=== PATIENT | female | born 1940 | race Caucasian/White ===

== ENCOUNTER → 2016-06-14 | Outpatient (CLI) | payer MEDICARE, BC ==
--- NOTE | 2016-06-16 08:48 | MM ---
Reason for exam: screening (asymptomatic). Last mammogram was performed 1 year and 1 month ago. History: Patient is postmenopausal. Benign stereotactic core biopsy of the right breast, September 11, 2004. Benign excisional biopsy of the right breast, April 04, 2000. Physical Findings: A clinical breast exam by your physician is recommended on an annual basis and results should be correlated with mammographic findings. MG 3D Screening Mammo W/Cad Bilateral CC and MLO view(s) were taken. Prior study comparison: May 02, 2015, bilateral MG screening mammo w CAD. April 09, 2014, bilateral MG screening mammo w CAD. There are scattered fibroglandular densities. Previous mammotome biopsy in the right breast. No significant changes when compared with prior studies. ASSESSMENT: Negative, BI-RAD 1 RECOMMENDATION: Routine screening mammogram of both breasts in 1 year.
== END | disposition home or self-care (01) ==
LOC: RADMAMWWP 15:00
PROVIDERS: ATTEND Family Medicine
DX: Z12.31 Encounter for screening mammogram for malignant neoplasm of breast (principal)
CPT/HCPCS: 77063; G0202

== ENCOUNTER → 2017-07-28 | Outpatient (CLI) | payer MEDICARE, BC ==
--- NOTE | 2017-07-29 12:07 | MM ---
Reason for exam: screening (asymptomatic). Last mammogram was performed 1 year and 1 month ago. History: Patient is postmenopausal. Benign stereotactic core biopsy of the right breast, September 11, 2004. Benign excisional biopsy of the right breast, April 04, 2000. Physical Findings: A clinical breast exam by your physician is recommended on an annual basis and results should be correlated with mammographic findings. MG 3D Screening Mammo W/Cad Bilateral CC and MLO view(s) were taken. Prior study comparison: June 14, 2016, bilateral MG 3d screening mammo w/cad. May 02, 2015, bilateral MG screening mammo w CAD. Previous mammotome biopsy in the right breast. No significant changes when compared with prior studies. ASSESSMENT: Benign, BI-RAD 2 RECOMMENDATION: Routine screening mammogram of both breasts in 1 year.
== END | disposition home or self-care (01) ==
LOC: RADMAMWWP 09:05
PROVIDERS: ATTEND Family Medicine
DX: Z12.31 Encounter for screening mammogram for malignant neoplasm of breast (principal)
CPT/HCPCS: 77063; 77067

== ENCOUNTER → 2018-08-23 | Outpatient (CLI) | payer MEDICARE, BC ==
--- NOTE | 2018-08-23 16:29 | BD ---
EXAMINATION TYPE: Axial Bone Density DATE OF EXAM: 08/23/2018 COMPARISON: NONE CLINICAL HISTORY: 78-year-old female asymptomatic menopausal Height: 5'4 Weight: 189 FRAX RISK QUESTIONS: Secondary Osteoporosis: RISK FACTORS HISTORY OF: Surgery to Spine/):L sp When: 1999 Postmenopausal woman: y MEDICATIONS: Additional Medications: blood pressure Additional History: EXAM MEASUREMENTS: Bone mineral densitometry was performed using the [employer] System. Bone mineral density about the R hip (g/cm2): 0.770 Bone mineral density about the L hip (g/cm2): 0.770 T Score values are as follows: -----R Neck: -1.9 -----L Neck: -1.9 -----R Total: -1.3 -----L Total: -1.0 Bone mineral density about the L Wrist (g/cm2): 0.672 T Score values are as follows: -----Dist. R+U: 0.5 -----Prox. R+U: 0.2 -----Radius total: 0.0 IMPRESSION: Osteopenia (T Score between -2.5 and -1). There is slightly increased risk of fracture and the patient may be considered for treatment. Re-Screen 2-5 years. NOTE: T-SCORE=SD OF THE YOUNG ADULT MEAN.
--- NOTE | 2018-08-25 13:36 | MM ---
Reason for exam: screening (asymptomatic). Last mammogram was performed 1 year and 1 month ago. History: Patient is postmenopausal. Benign stereotactic core biopsy of the right breast, September 11, 2004. Benign excisional biopsy of the right breast, April 04, 2000. Physical Findings: A clinical breast exam by your physician is recommended on an annual basis and results should be correlated with mammographic findings. MG 3D Screening Mammo W/Cad Bilateral CC and MLO view(s) were taken. Prior study comparison: July 28, 2017, bilateral MG 3d screening mammo w/cad. June 14, 2016, bilateral MG 3d screening mammo w/cad. The breast tissue is heterogeneously dense. This may lower the sensitivity of mammography. Finding #1: There is a 12 mm indistinct oval mass located 4 cm from the nipple in the outer quadrant, anterior middle position of the right breast. Finding #2: There are typically benign round, linear calcifications in both breasts. New finding since July 28, 2017 and June 14, 2016. ASSESSMENT: Incomplete: need additional imaging evaluation, BI-RAD 0 RECOMMENDATION: Ultrasound of the right breast. [facility] will attempt to contact patient to return for ultrasound.
== END ==
LOC: RADBDWWP 13:13
PROVIDERS: ATTEND Family Medicine
DX: Z12.31 Encounter for screening mammogram for malignant neoplasm of breast (principal); M85.80 Other specified disorders of bone density and structure, unspecified site; Z78.0 Asymptomatic menopausal state
CPT/HCPCS: 77063; 77067; 77080

== ENCOUNTER → 2018-09-07 | Outpatient (CLI) | payer MEDICARE, BC ==
--- NOTE | 2018-09-07 09:39 | USB ---
Reason for exam: additional evaluation requested from abnormal screening. History: Patient is postmenopausal. Benign stereotactic core biopsy of the right breast, September 11, 2004. Benign excisional biopsy of the right breast, April 04, 2000. Physical Findings: Nurse did not find any significant physical abnormalities on exam. US Breast Workup Limited RT Right limited breast ultrasound including focal area of concern, retroareolar and axilla demonstrates a 0.9 x 0.7 x 0.4cm cystic lesion at 8 o'clock, corresponds with mammographic finding. These results were verbally communicated with the patient and result sheet given to the patient on 09/07/18. ASSESSMENT: Benign, BI-RAD 2 RECOMMENDATION: Return to routine screening mammogram schedule for both breasts.
== END ==
LOC: RADUSWWP 08:44
PROVIDERS: ATTEND Family Medicine
DX: R92.8 Other abnormal and inconclusive findings on diagnostic imaging of breast (principal)

== ENCOUNTER → 2019-10-12 | Outpatient (CLI) | payer MEDICARE, BC ==
--- NOTE | 2019-10-12 11:20 | MM ---
Reason for exam: screening (asymptomatic). Last mammogram was performed 1 year and 2 months ago. History: Patient is postmenopausal. Benign stereotactic core biopsy of the right breast, September 11, 2004. Benign excisional biopsy of the right breast, April 04, 2000. Physical Findings: A clinical breast exam by your physician is recommended on an annual basis and results should be correlated with mammographic findings. MG 3D Screening Mammo W/Cad Bilateral CC and MLO view(s) were taken. Prior study comparison: August 23, 2018, bilateral MG 3d screening mammo w/cad. July 28, 2017, bilateral MG 3d screening mammo w/cad. The breast tissue is heterogeneously dense. This may lower the sensitivity of mammography. Stable benign calcifications. There is chronic nodularity bilaterally. There is no dominant lesion. There is no discrete abnormality. No significant changes when compared with prior studies. ASSESSMENT: Benign, BI-RAD 2 RECOMMENDATION: Routine screening mammogram of both breasts in 1 year.
== END | disposition home or self-care (01) ==
LOC: RADMAMWWP 07:25
PROVIDERS: ATTEND Family Medicine
DX: Z12.31 Encounter for screening mammogram for malignant neoplasm of breast (principal)
CPT/HCPCS: 77063; 77067

== ENCOUNTER → 2020-12-19 | Outpatient (CLI) | payer MEDICARE, BC ==
--- NOTE | 2020-12-24 08:30 | MM ---
Reason for exam: screening (asymptomatic). Last mammogram was performed 1 year and 2 months ago. History: Patient is postmenopausal. Benign stereotactic core biopsy of the right breast, September 11, 2004. Benign excisional biopsy of the right breast, April 04, 2000. Took hormonal contraceptives for 8 years. Physical Findings: A clinical breast exam by your physician is recommended on an annual basis and results should be correlated with mammographic findings. MG 3D Screening Mammo W/Cad Bilateral CC and MLO view(s) were taken. Prior study comparison: October 12, 2019, bilateral MG 3d screening mammo w/cad. August 23, 2018, bilateral MG 3d screening mammo w/cad. The breast tissue is heterogeneously dense. This may lower the sensitivity of mammography. Previous mammotome biopsy in the right breast. No significant changes when compared with prior studies. ASSESSMENT: Benign, BI-RAD 2 RECOMMENDATION: Routine screening mammogram of both breasts in 1 year.
== END | disposition home or self-care (01) ==
LOC: RADMAMWWP 13:02
PROVIDERS: ATTEND Family Medicine
DX: Z12.31 Encounter for screening mammogram for malignant neoplasm of breast (principal); Z78.0 Asymptomatic menopausal state; Z79.3 Long term (current) use of hormonal contraceptives
CPT/HCPCS: 77063; 77067

== ENCOUNTER → 2021-03-27 | Outpatient (CLI) | payer MEDICARE, BC ==
--- NOTE | 2021-03-27 08:59 | BD ---
EXAMINATION TYPE: Axial Bone Density DATE OF EXAM: 03/27/2021 COMPARISON: 08/23/2018 CLINICAL HISTORY: Height: 63.7 IN Weight: 176 LBS RISK FACTORS HISTORY OF: Surgery to Spine: L SPINE SURGERY IN 1999 Active: YES Diet low in dairy products/other sources of calcium: YES Postmenopausal woman: AGE 52 MEDICATIONS: Additional Medications: CALCIUM, BLOOD PRESSURE MEDS, BABY ASPIRIN, FISH OIL EXAM MEASUREMENTS: Bone mineral densitometry was performed using the [employer] System. PT HAD L-SPINE SURGERY IN 1999. Bone mineral density about the R hip (g/cm2): 0.751 Bone mineral density about the L hip (g/cm2): 0.754 T Score values are as follows: -----R Neck: -2.1 -----L Neck: -2.0 -----R Total: -1.1 -----L Total: -0.8 Bone mineral density has: Increased 3.0% since study of: 08/23/2018 Bone mineral density about the L Wrist (g/cm2): 0.679 T Score values are as follows: -----Dist. R+U: -1.5 -----Prox. R+U: 0.4 -----Radius total: 0.1 Bone mineral density has: Increased 2.1% since study of: 08/23/2018 IMPRESSION: Osteopenia (T Score between -2.5 and -1). There is slightly increased risk of fracture and the patient may be considered for treatment. Re-Screen 2-5 years. NOTE: T-SCORE=SD OF THE YOUNG ADULT MEAN.
== END | disposition home or self-care (01) ==
LOC: RADBDWWP 07:00
PROVIDERS: ATTEND Family Medicine
DX: M85.89 Other specified disorders of bone density and structure, multiple sites (principal); Z78.0 Asymptomatic menopausal state
CPT/HCPCS: 77080

== ENCOUNTER → 2022-02-10 | Outpatient (CLI) | payer MEDICARE ==
--- NOTE | 2022-02-11 18:41 | MM ---
Reason for Exam: Screening (asymptomatic). Last mammogram was performed 1 year(s) and 1 month(s) ago. Patient History: Menarche at age 15. First Full-Term at age 28. Postmenopausal. Patient used Hormonal Contraceptives for 8 years. 04/04/2000, Benign Excisional Biopsy on the right side. 09/11/2004, Benign Stereotactic Core Biopsy on the right side. Risk Values: Jenae 5 year model risk: 2.8%. NCI Lifetime model risk: 4.7%. Prior Study Comparison: 08/23/2018 Bilateral Screening Mammogram, [facility]. 10/12/2019 Bilateral Screening Mammogram, [facility]. 12/19/2020 Bilateral Screening Mammogram, [facility]. Tissue Density: There are scattered fibroglandular densities. Findings: Analyzed By CAD. Redemonstrated areas of chronic nodularity anterior and lateral right breast. Benign bilateral secretory and some round calcifications. Microclip right breast from prior biopsy. No significant change from prior exams. Overall Assessment: Benign, BI-RAD 2 Management: Screening Mammogram of both breasts in 1 year. 1. Patient should continue monthly self breast exams. 2. A clinical breast exam by your physician is recommended on an annual basis. 3. This exam should not preclude additional follow-up of suspicious palpable abnormalities. Electronically signed and approved by: Mary Anne Cordoba M.D. Radiologist
== END | disposition home or self-care (01) ==
LOC: RADMAMWWP 07:52
PROVIDERS: ATTEND Family Medicine
DX: Z12.31 Encounter for screening mammogram for malignant neoplasm of breast (principal); Z78.0 Asymptomatic menopausal state
CPT/HCPCS: 77063; 77067

== ENCOUNTER 2024-01-22 09:30 | Inpatient (IN) | payer MEDICARE ==
--- NOTE | 2024-01-22 09:58 | ED ---
General Adult HPI - General Chief complaint: Fall Stated complaint: L Hip Pain Time Seen by Provider: 01/22/24 09:34 Source: patient, EMS, RN notes reviewed, old records reviewed Mode of arrival: EMS - History of Present Illness Initial comments: 83-year-old female presenting for evaluation of left hip pain status post fall. Patient was unable to ambulate after the fall. She states she tripped falling backwards landing on her left hip. Patient was transported by paramedics, given fentanyl for pain management. She denies head or neck trauma. She denies preceding symptoms of dizziness or lightheadedness. Denies chest pain. Denies anticoagulation. - Related Data Home Medications Medication Instructions Recorded Confirmed Calcium Carbonate/Vitamin D3 1 tab PO BID 05/17/14 05/26/15 [Calcium 600-Vit D3 400 Tablet] Enalapril Maleate 10 mg PO BID 05/17/14 05/26/15 Multivitamins, Thera [Multivitamin 1 tab PO DAILY 05/17/14 05/26/15 (formulary)] Mittie-3 Fatty Acids/Fish Oil [Fish 1,000 mg PO BID 05/17/14 05/26/15 Oil 1,000 mg Softgel] Aspirin 81 mg PO DAILY 05/19/15 05/26/15 Warfarin [Coumadin] 7.5 mg PO ONCE 05/26/15 05/26/15 Previous Rx's Medication Instructions Recorded Docusate [Colace] 100 mg PO BID #60 capsule 05/27/15 HYDROcodone/APAP 5-325MG [[place] 1 - 2 each PO Q6HR PRN #90 tab 05/27/15 5-325] Warfarin [Coumadin] 2.5 mg PO DAILY #1 tab 05/27/15 Allergies Allergy/AdvReac Type Severity Reaction Status Date / Time No Known Allergies Allergy Verified 01/22/24 09:42 Review of Systems ROS Statement: Those systems with pertinent positive or pertinent negative responses have been documented in the HPI. ROS Other: All systems not noted in ROS Statement are negative. Past Medical History Past Medical History: Hyperlipidemia, Hypertension, Osteoarthritis (OA) Additional Past Medical History / Comment(s): 05/26/15 Pt admitted to floor s/p total R knee arthroplasty. Other HX: DJD History of Any Multi-Drug Resistant Organisms: None Reported Past Surgical History: Back Surgery, Breast Surgery, Tonsillectomy Additional Past Surgical History / Comment(s): 05/26/15 Total R knee arthroplasty. Other surgeries: two breast biopsies,LT KNEE REPLACEMENT Past Anesthesia/Blood Transfusion Reactions: No Reported Reaction Past Psychological History: No Psychological Hx Reported Smoking Status: Never smoker Past Alcohol Use History: None Reported Past Drug Use History: None Reported - Past Family History Father Family Medical History: Hypertension Brother(s) Additional Family Medical History / Comment(s): CABG Mother Family Medical History: Diabetes Mellitus, Hypertension General Exam General appearance: alert, in no apparent distress Head exam: Present: atraumatic, normocephalic Eye exam: Present: normal appearance, PERRL ENT exam: Present: normal exam Neck exam: Present: normal inspection. Absent: tenderness, meningismus Respiratory exam: Present: normal lung sounds bilaterally. Absent: respiratory distress, wheezes Cardiovascular Exam: Present: regular rate, normal rhythm GI/Abdominal exam: Present: soft. Absent: distended, tenderness, guarding Extremities exam: Present: tenderness, normal capillary refill, other (Left lower extremity is shortened and externally rotated, distal pulses intact). Absent: full ROM Neurological exam: Present: alert, oriented X3 Psychiatric exam: Present: normal affect, normal mood Skin exam: Present: warm, dry, intact Course Vital Signs 01/22/24 09:32 Temperature 98.0 F Pulse Rate 91 Respiratory 16 Rate Blood Pressure 183/68 O2 Sat by Pulse 95 Oximetry Medical Decision Making - Medical Decision Making Was pt. sent in by a medical professional or institution (, PA, LEATHER TOOLER, urgent care, hospital, or detention...) When possible be specific @ -No Did you speak to anyone other than the patient for history (EMS, parent, family, police, friend...)? What history was obtained from this source @ -No Did you review nursing and triage notes (agree or disagree)? Why? @ -I reviewed and agree with nursing and triage notes Were old charts reviewed (outside hosp., previous admission, EMS record, old EKG, old radiological studies, urgent care reports/EKG's, detention records)? Report findings @ -No old charts were reviewed Differential Diagnosis (chest pain, altered mental status, abdominal pain women, abdominal pain men, vaginal bleeding, weakness, fever, dyspnea, syncope, headache, dizziness, GI bleed, back pain, seizure, CVA, palpatations, mental health, musculoskeletal)? @ -Not applicable EKG interpreted by me (3pts min.). @Sinus rhythm right bundle branch block, rate of 91, OR interval 160, QRS duration 138, QTc [address] segment elevation. X-rays interpreted by me (1pt min.). @ -X-ray left hip shows a left femoral neck fracture, chest x-ray is clear no acute findings CT interpreted by me (1pt min.). @ -None done U/S interpreted by me (1pt. min.). @ -None done What testing was considered but not performed or refused? (CT, X-rays, U/S, labs)? Why? @ -None What meds were considered but not given or refused? Why? @ -None Did you discuss the management of the patient with other professionals (professionals i.e. , PA, LEATHER TOOLER, lab, RT, psych nurse, social security specialist, trackless trolley driver, teacher, founder and chief technical officer, insurance case manager)? Give summary @ -[Dr. Mojica has been paged covering for orthopedics, internal medicine placed on consult for medical management Was smoking cessation discussed for >3mins.? @ -No Was critical care preformed (if so, how long)? @ -No Were there social determinants of health that impacted care today? How? (Homelessness, low income, unemployed, alcoholism, drug addiction, transportation, low edu. Level, literacy, decrease access to med. care, [facility], rehab)? @ -No Was there de-escalation of care discussed even if they declined (Discuss DNR or withdrawal of care, Hospice)? DNR status @ -No What co-morbidities impacted this encounter? (DM, HTN, Smoking, COPD, CAD, Cancer, CVA, ARF, Chemo, Hep., AIDS, mental health diagnosis, sleep apnea, morbid obesity)? @ -None Was patient admitted / discharged? Hospital course, mention meds given and route, prescriptions, significant lab abnormalities, going to OR and other pertinent info. @ -83-year-old female with mechanical fall, left hip pain. The left lower extremity is shortened and externally rotated. Distal pulses are intact. X-ray confirms left femoral neck fracture. Patient admitted to orthopedics with medicine on consult. Undiagnosed new problem with uncertain prognosis? @ -No Drug Therapy requiring intensive monitoring for toxicity (Heparin, Nitro, Insulin, Cardizem)? @ -No Were any procedures done? @ -No Diagnosis/symptom? @ -Left femoral neck fracture Acute, or Chronic, or Acute on Chronic? @Acute Uncomplicated (without systemic symptoms) or Complicated (systemic symptoms)? @ -Default Side effects of treatment? @ -No Exacerbation, Progression, or Severe Exacerbation? @ -No Poses a threat to life or bodily function? How? (Chest pain, [place], [place], pneumonia, PE, COPD, DKA, ARF, appy, cholecystitis, CVA, Diverticulitis, Homicidal, Suicidal, threat to staff... and all critical care pts) @ -[Yes, hip fracture - Lab Data Result diagrams: 01/22/24 09:52 01/22/24 09:52 Lab Results 01/22/24 01/22/24 01/22/24 Range/Units 09:52 09:52 09:52 WBC 11.1 H (3.8-10.6) k/uL RBC 4.65 (3.80-5.40) m/uL Hgb 14.7 (11.4-16.0) gm/dL Hct 44.1 (34.0-46.0) % MCV 94.9 (80.0-100.0) fL MCH 31.6 (25.0-35.0) pg MCHC 33.4 (31.0-37.0) g/dL RDW 13.1 (11.5-15.5) % Plt Count 196 (150-450) k/uL MPV 7.5 Neutrophils % 88 % Lymphocytes % 7 % Monocytes % 4 % Eosinophils % 1 % Basophils % 0 % Neutrophils # 9.8 H (1.3-7.7) k/uL Lymphocytes # 0.8 L (1.0-4.8) k/uL Monocytes # 0.4 (0-1.0) k/uL Eosinophils # 0.1 (0-0.7) k/uL Basophils # 0.0 (0-0.2) k/uL PT 10.9 (10.0-12.5) sec INR 1.0 (<1.2) APTT 21.9 L (22.0-30.0) sec Sodium 138 (137-145) mmol/L Potassium 4.1 (3.5-5.1) mmol/L Chloride 107 (98-107) mmol/L Carbon Dioxide 28 (22-30) mmol/L Anion Gap 3 mmol/L BUN 14 (7-17) mg/dL Creatinine 0.92 (0.52-1.04) mg/dL Est GFR (CKD-EPI)AfAm 68 (>60 ml/min/1.73 sqM) Est GFR (CKD-EPI)NonAf 59 (>60 ml/min/1.73 sqM) Glucose 173 H (74-99) mg/dL Calcium 9.8 (8.4-10.2) mg/dL Total Bilirubin 0.7 (0.2-1.3) mg/dL AST 35 (14-36) U/L ALT 24 (4-34) U/L Alkaline Phosphatase 68 (38-126) U/L Total Protein 6.6 (6.3-8.2) g/dL Albumin 4.0 (3.5-5.0) g/dL Disposition Clinical Impression: Fall, Fracture of femoral neck, left Disposition: ADMITTED IP TO THIS HOSP Condition: Stable Is patient prescribed a controlled substance at d/c from ED?: No Referrals: Sohail Gomez MD [Primary Care Provider] - 1-2 days Time of Disposition: 11:20
[2024-01-22 10:02] LABS: Basophils % (A) 0 %; Eosinophils # (A) 0.1 k/uL (0-0.7); Eosinophils % (A) 1 %; HCT 44.1 % (34.0-46.0); HGB 14.7 gm/dL (11.4-16.0); Lymphocytes # (A) 0.8 k/uL (1.0-4.8); Lymphocytes % (A) 7 %; MCH 31.6 pg (25.0-35.0); MCHC 33.4 g/dL (31.0-37.0); MCV 94.9 fL (80.0-100.0); Mean Platelet Volume 7.5; Monocytes # (A) 0.4 k/uL (0-1.0); Monocytes % (A) 4 %; Neutrophils # (A) 9.8 k/uL (1.3-7.7); Neutrophils % (A) 88 %; Platelet Count 196 k/uL (150-450); RBC 4.65 m/uL (3.80-5.40); RDW 13.1 % (11.5-15.5); WBC 11.1 k/uL (3.8-10.6)
[2024-01-22 10:19] LABS: ALT 24 U/L (4-34); AST 35 U/L (14-36); African American GFR (CKD) 68 (>60 ml/min/1.73 sqM); Alkaline Phosphatase 68 U/L (38-126); Anion Gap 3 mmol/L; Blood Urea Nitrogen 14 mg/dL (7-17); Calcium 9.8 mg/dL (8.4-10.2); Carbon Dioxide 28 mmol/L (22-30); Chloride 107 mmol/L (98-107); Glucose 173 mg/dL (74-99); Non-African American GFR(CKD) 59 (>60 ml/min/1.73 sqM); Partial Thromboplastin Time 21.9 sec (22.0-30.0); Potassium 4.1 mmol/L (3.5-5.1); Prothrombin Time 10.9 sec (10.0-12.5); Sodium 138 mmol/L (137-145); Total Bilirubin 0.7 mg/dL (0.2-1.3); Total Protein 6.6 g/dL (6.3-8.2)
[2024-01-22] MEDS ORDERED: NALOXONE 0.4 MG/ML 1 ML VIAL IV PRN (11:17)
--- NOTE | 2024-01-22 11:17 | XR ---
EXAMINATION TYPE: XR Hip Complete LT DATE OF EXAM: 01/22/2024 COMPARISON: None HISTORY: Fall, pain TECHNIQUE: 2 view left hip FINDINGS: Femoral neck fracture is evident. Femoral head articulates with the acetabulum. No addition al fractures are evident. IMPRESSION: 1. Left femoral neck fracture [facility]-Ray Annetta Morgan, Workstation: [facility], 01/22/2024 11:14 AM
--- NOTE | 2024-01-22 11:17 | XR ---
EXAMINATION TYPE: XR chest 1V portable DATE OF EXAM: 01/22/2024 COMPARISON: None INDICATION: Presurgical clearance, fall, pain TECHNIQUE: Single frontal view of the chest is obtained. FINDINGS: The heart size is normal. The pulmonary vasculature is normal. The lungs are clear. No pneumothorax is evident. No displaced rib fractures evident. IMPRESSION: 1. No acute pulmonary process. [facility], Workstation: [facility], 01/22/2024 11:15 AM
[2024-01-22] MEDS: SODIUM CHLORIDE 0.9% 1,000 ML IV SCH (11:35)
[2024-01-22] MEDS: MORPHINE SULFATE 2 MG/ML SYRINGE IVP STA (11:37)
--- NOTE | 2024-01-22 14:26 | P.HPOR ---
History of Present Illness H&P Date: 01/22/24 This is an 83-year-old female who is admitted for a left hip fracture. Patient states that she fell at home earlier this morning and developed pain in the left hip. Patient was transferred to the emergency room via EMS and x-rays revealed a left femoral neck fracture. Patient denies any head injury or loss of consciousness. Patient's past medical history is significant for hypertension and osteoarthritis. Patient denies any fever/chills, chest pain, shortness breath, abdominal pain, numbness, weakness or tingling. Review of Systems See HPI. Past Medical History Past Medical History: Hypertension, Osteoarthritis (OA) Additional Past Medical History / Comment(s): DJD, Left femer fracture secondary to fall (01/22/24) History of Any Multi-Drug Resistant Organisms: None Reported Past Surgical History: Back Surgery, Breast Surgery, Tonsillectomy Additional Past Surgical History / Comment(s): two breast biopsies,LT KNEE REPLACEMENT, Rt knee replacement Past Anesthesia/Blood Transfusion Reactions: No Reported Reaction Past Psychological History: No Psychological Hx Reported Additional Psychological History / Comment(s): Pt resides with her spouse. She uses no assistive device. She drives. Smoking Status: Never smoker Past Alcohol Use History: None Reported Past Drug Use History: None Reported - Past Family History Father Family Medical History: Hypertension Brother(s) Additional Family Medical History / Comment(s): CABG Mother Family Medical History: Diabetes Mellitus, Hypertension Medications and Allergies Home Medications Medication Instructions Recorded Confirmed Type Aspirin EC [Ecotrin Low Dose] 81 mg PO DAILY 01/22/24 01/22/24 History Calcium Carbonate/Vitamin D3 1 tab PO DAILY 01/22/24 01/22/24 History [Calcium 500-Vit D3 400 Chew Tb] Cholecalciferol [Vitamin D3 (25 25 mcg PO DAILY 01/22/24 01/22/24 History Mcg = 1000 Iu)] Enalapril [Vasotec] 20 mg PO BID 01/22/24 01/22/24 History [place]-3/Dha/Epa/Fish Oil [[place]-3 1 cap PO DAILY 01/22/24 01/22/24 History Fish Oil 1,000 mg Sfgl] Allergies Allergy/AdvReac Type Severity Reaction Status Date / Time No Known Allergies Allergy Verified 01/22/24 12:43 Physical Examination On exam patient is resting comfortably in bed in no acute distress. Patient is alert and oriented 3. Left lower extremity: Shortened and externally rotated. Skin is intact. There is mild swelling present. Patient has good range of motion of the left foot and ankle. Calf is soft and nontender to palpation. Sensation intact. Neurovascular status and circulatory status are intact. Head is normocephalic and atraumatic. Exams of bilateral upper extremities and the right lower extremity are within normal limits. Results An x-ray report of the left hip dated 01/22/2024 shows a left femoral neck frac ture. - Labs Labs: Abnormal Lab Results - Last 24 Hours (Table) 01/22/24 01/22/24 01/22/24 Range/Units 09:52 09:52 09:52 WBC 11.1 H (3.8-10.6) k/uL Neutrophils # 9.8 H (1.3-7.7) k/uL Lymphocytes # 0.8 L (1.0-4.8) k/uL APTT 21.9 L (22.0-30.0) sec Glucose 173 H (74-99) mg/dL H & H 01/22/24 Range/Units 09:52 Hgb 14.7 (11.4-16.0) gm/dL Hct 44.1 (34.0-46.0) % Coagulation 01/22/24 Range/Units 09:52 INR 1.0 (<1.2) Result Diagrams: 01/22/24 09:52 01/22/24 09:52 Assessment and Plan (1) Fall Current Visit: Yes Status: Acute Code(s): W19.XXXA - UNSPECIFIED FALL, INITIAL ENCOUNTER SNOMED Code(s): 5331066 (2) Fracture of femoral neck, left Current Visit: Yes Status: Acute Code(s): S72.002A - FRACTURE OF UNSP PART OF NECK OF LEFT FEMUR, INIT SNOMED Code(s): 2635253 Plan: 1. NPO 2. Continue bedrest and pain control. 3. Appreciate input from internal medicine. 4. Planning for left hip hemiarthroplasty later today pending medical clearance and patient consent.
--- NOTE | 2024-01-22 16:21 | P.CONS ---
History of Present Illness - Reason for Consult Consult date: 01/22/24 pre-op evaluation Requesting physician: Rickie Jama - Chief Complaint hip pain - History of Present Illness Patient is an 83-year-old admitted for left femoral neck fracture. Admitted to orthopedic surgery and we are asked to consult for medical management and preoperative clearance Patient seen and examined at bedside. She reports that she fell today without loss of consciousness. No presyncope symptoms. Mechanical fall. Landed on her left hip and was unable to get up afterwards. Denies any recent chest pain, shortness of breath, syncope, lightheadedness, dizziness. No history of any heart disease. 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 Patient denies any symptoms of lightheadedness, dizziness, chest pain, shortness of breath, or palpitations in the last 6 months. She has no knowledge of a bundle branch block. Vital signs reviewed General: nontoxic, no distress, appears at stated age Derm: warm, dry Eyes: EOMI, no lid lag, anicteric sclera, pupils equal round reactive to light ENT: Nose and ears atraumatic Cardiovascular: S1S2 reg, no murmur, no edema Lungs: clear to auscultation bilateral, no rhonchi, no rales, no wheeze, no accessory muscle use Abdominal: soft, nontender to palpation, no guarding Ext: Left leg externally rotated and shortened Neuro: CN II-XII grossly intact, living arms independently Psych: Alert, oriented, appropriate affect Assessment/Plan: Left femoral neck fracture Preoperative clearance; NSQIP score for hemiarthroplasty: Risk of serious complications 4.7% ( average 3.6%), Any complications (5.2% (average 4.3%), cardiac complications 0.3% (avrage 0.3%) Patient medically optimized for surgery. Patient with newly identified RBB and LAF block. No need to delay surgery at this time. Pre and Post op tele monitoring recommended. Obtain echo which can be completed post-op. Obtain EKG from Dr. Gomez. Hypertension, controlled -Resume Vasotec 20 mg twice daily Imaging: EKG is reviewed by myself reveals normal sinus rhythm at 91 bpm with right bundle branch block and left anterior fascicular block Data Review: WBC 11.1, remainder of CBC and CMP are within normal. Thank you for allowing us to participate in the care of this pleasant patient. Do not hesitate to contact us with questions. Someone can be reached from the [facility] hospitalist group all hours of the day at [phone] or via [employer]. This dictation was prepared using [employer] voice recognition software. Though every attempt is made to correct errors during dictation some may still exist. Past Medical History Past Medical History: Hypertension, Osteoarthritis (OA) Additional Past Medical History / Comment(s): DJD, Left femer fracture secondary to fall (01/22/24) History of Any Multi-Drug Resistant Organisms: None Reported Past Surgical History: Back Surgery, Breast Surgery, Tonsillectomy Additional Past Surgical History / Comment(s): two breast biopsies,LT KNEE REPLACEMENT, Rt knee replacement Past Anesthesia/Blood Transfusion Reactions: No Reported Reaction Past Psychological History: No Psychological Hx Reported Additional Psychological History / Comment(s): Pt resides with her spouse. She uses no assistive device. She drives. Smoking Status: Never smoker Past Alcohol Use History: None Reported Past Drug Use History: None Reported - Past Family History Father Family Medical History: Hypertension Brother(s) Additional Family Medical History / Comment(s): CABG Mother Family Medical History: Diabetes Mellitus, Hypertension Medications and Allergies Home Medications Medication Instructions Recorded Confirmed Type Aspirin EC [Ecotrin Low Dose] 81 mg PO DAILY 01/22/24 01/22/24 History Calcium Carbonate/Vitamin D3 1 tab PO DAILY 01/22/24 01/22/24 History [Calcium 500-Vit D3 400 Chew Tb] Cholecalciferol [Vitamin D3 (25 25 mcg PO DAILY 01/22/24 01/22/24 History Mcg = 1000 Iu)] Enalapril [Vasotec] 20 mg PO BID 01/22/24 01/22/24 History [place]-3/Dha/Epa/Fish Oil [[place]-3 1 cap PO DAILY 01/22/24 01/22/24 History Fish Oil 1,000 mg Sfgl] Allergies Allergy/AdvReac Type Severity Reaction Status Date / Time No Known Allergies Allergy Verified 01/22/24 12:43 Physical Exam Osteopathic Statement: *. No significant issues noted on an osteopathic structural exam other than those noted in the History and Physical/Consult. Vitals: Vital Signs Temp Pulse Pulse Resp BP BP Pulse Ox 01/22/24 14:00 98.0 F 74 16 151/71 90 L 01/22/24 13:40 98.5 F 86 18 137/76 95 01/22/24 11:34 82 18 140/77 94 L 01/22/24 09:32 98.0 F 91 16 183/68 95 Intake and Output 01/22/24 01/22/24 01/22/24 06:59 14:59 22:59 Other: Weight 75.75 kg Results CBC & Chem 7: 01/22/24 09:52 01/22/24 09:52 Labs: Abnormal Lab Results - Last 24 Hours (Table) 01/22/24 01/22/24 01/22/24 Range/Units 09:52 09:52 09:52 WBC 11.1 H (3.8-10.6) k/uL Neutrophils # 9.8 H (1.3-7.7) k/uL Lymphocytes # 0.8 L (1.0-4.8) k/uL APTT 21.9 L (22.0-30.0) sec Glucose 173 H (74-99) mg/dL
[2024-01-22] MEDS: HYDROmorphone 0.5 MG/0.5 ML SYRINGE IVP PRN (18:03)
[2024-01-22] MEDS: lisinopriL 20 MG TAB PO SCH (20:51)
[2024-01-23 04:10] LABS: Basophils % (A) 0 %; Eosinophils # (A) 0.1 k/uL (0-0.7); Eosinophils % (A) 1 %; HCT 40.9 % (34.0-46.0); HGB 13.3 gm/dL (11.4-16.0); Lymphocytes # (A) 0.8 k/uL (1.0-4.8); Lymphocytes % (A) 8 %; MCH 31.9 pg (25.0-35.0); MCHC 32.6 g/dL (31.0-37.0); MCV 97.8 fL (80.0-100.0); Monocytes # (A) 0.5 k/uL (0-1.0); Monocytes % (A) 5 %; Neutrophils # (A) 8.1 k/uL (1.3-7.7); Neutrophils % (A) 86 %; Platelet Count 161 k/uL (150-450); RBC 4.18 m/uL (3.80-5.40); RDW 12.8 % (11.5-15.5); WBC 9.4 k/uL (3.8-10.6)
[2024-01-23] MEDS: IV FLUID CONTINUATION 1,000 ML IV ONE (07:51)
[2024-01-23] MEDS: LACTATED RINGERS 1,000 ML BAG IV STA (07:52)
[2024-01-23] MEDS: DEXAMETHASONE SOD PHOSPHATE 4 MG/ML 1 ML VIAL IVP STA (08:06)
[2024-01-23] MEDS: ONDANSETRON 4 MG/2 ML VIAL IVP STA (08:07)
[2024-01-23] MEDS: MIDAZOLAM 2 MG/2 ML VIAL IV ONE (08:11)
[2024-01-23] MEDS ORDERED: ONDANSETRON 4 MG/2 ML VIAL IVP PRN (08:44)
[2024-01-23] MEDS ORDERED: MAGNESIUM HYDROXIDE 2,400 MG/30 ML CUP PO PRN (08:44)
[2024-01-23] MEDS ORDERED: NALOXONE 0.4 MG/ML 1 ML VIAL IV PRN (08:44)
[2024-01-23] MEDS ORDERED: HYDROmorphone 0.5 MG/0.5 ML SYRINGE IVP PRN ×3 (08:44)
[2024-01-23] MEDS ORDERED: NON FORMULARY DRUG (Omega-3/Dha/Epa/Fish Oil [Omega-3 Fish Oil 1,000 Mg Sfgl] 1 EACH Capsu PO SCH (09:00)
[2024-01-23] MEDS ORDERED: MIDAZOLAM 2 MG/2 ML VIAL ONE (09:11)
[2024-01-23] MEDS ORDERED: fentaNYL (PF) 50 MCG/ML 2 ML AMP ONE (09:11)
[2024-01-23] MEDS: SODIUM CHLORIDE 0.9% 100 ML with ceFAZolin 2,000 MG IV ONE (09:11)
[2024-01-23] MEDS ORDERED: PROPOFOL 10 MG/ML 20 ML VIAL IV ONE (09:11)
[2024-01-23] MEDS ORDERED: TRANEXAMIC 1,000 MG/100ML-NACL PREMIX BAG ONE (09:11)
[2024-01-23] MEDS: ceFAZolin 1,000 MG in SODIUM CHLORIDE 0.9% 1,000 ML IRRIGATION ONE (09:11)
[2024-01-23] MEDS ORDERED: KETAMINE HCL IN 0.9 % NACL 50 MG/5 ML SYRINGE ONE (09:11)
[2024-01-23] MEDS: ROPIVACAINE 5 MG/ML 30 ML VIAL MISCELLANE ONE ×2 (09:37→10:05)
--- NOTE | 2024-01-23 10:08 | P.OP ---
Date of Procedure: 01/23/24 Preoperative Diagnosis: Subcapital fracture left hip Postoperative Diagnosis: Subcapital fracture left hip Procedure(s) Performed: Left hip hemiarthroplasty Implants: Grewal and nephew Polarstem size 3 standard with a collar Grewal [employer] Nephew tandem unipolar, 45 mm Grewal & Nephew tandem unipolar 12/14 taper sleeve, +0 mm All components were press-fit. Anesthesia: spinal Surgeon: Rickie Jama [employer] Clerk #1: Raissa Barcenas Estimated Blood Loss (ml): 100 Pathology: none sent Condition: stable Disposition: PACU Indications for Procedure: This is an 83-year-old female that sustained a ground-level fall at home. X- rays demonstrate a subcapital fracture of her left hip. After discussing the surgical and nonsurgical treatment options with her and her family at length, I recommended a left hip hemiarthroplasty. Informed consent was obtained. Operative Findings: The operative findings are consistent with a subcapital fracture of the left hip Description of Procedure: The patient was seen and evaluated in the preoperative area and the consent was reviewed. The operative site was marked with a skin marker. The patient verified the procedure and operative site. The patient was then brought to the operating room and given preoperative antibiotics intravenously. 1 g of Tranexamic acid was also given intravenously. A spinal anesthetic was administered by the anesthesia department. The patient was then placed on the [place] table with the bony prominences well-padded. The hip area was then prepped with a ChloraPrep solution and draped in the usual sterile fashion. A universal timeout was then performed, which confirmed the patient's name, surgical site, ALLERGIES, and procedure being performed on the consent. Next the incision site was located at 1 cm distal and 4 cm lateral to the anterior superior iliac spine. The skin and subcutaneous tissues were sharply incised. Incision was carefully dissected down to the fascia overlying the tensor fascia lance muscle. This fascia was then incised in line with the muscle fibers. Care was taken to stay laterally in order to avoid injuring the lateral femoral cutaneous nerve. Next, using blunt finger dissection, the tensor fascia lance muscle was dissected off its investing fascia. The muscle was then carefully retracted laterally with a cobra retractor over the lateral neck of the femur. Next, the circumflex vessels were identified and cauterized using the Aquamantis device. The anterior hip capsule was then exposed. The capsule was then opened and an inverted T fashion. The retractors were then placed intracapsularly. The retractors were maintained intracapsular throughout the procedure. The proximal femur was then visualized. The subcapital fracture was visualized. A small amount of traction was placed on the leg. The femoral neck was then osteotomized at the appropriate level above the lesser trochanter. A small wedge of bone was then removed from the remaining femoral head. Next, using a corkscrew the femoral head was removed from the acetabulum. The femoral head was then measured. Attention was then turned to the acetabulum. The acetabulum was exposed and inspected. There was very little evidence of arthritis in the acetabulum. Attention was then directed to the femur. With the aid of the Cottonwood table, the femur was externally rotated to approximately 130, extended, and adducted under the opposite leg. A side hook was then placed under the proximal femur, and the side hook elevator was used to elevate the proximal femur while releasing the capsule. Retractors were then placed. A capsular release was performed, as well as a release of the conjoined tendon, which afforded excellent visualization of the proximal femur. Next, a box osteotome was used to lateralize the proximal femur. A hand plate stacker was then used to locate the femoral canal. Sequential broaching was then performed with appropriate size which afforded excellent fixation in the proximal femur. A trial was then placed with appropriate head and neck, and the hip was gently reduced with the aid of the [place]wood table. Fluoroscopy was then used to check position of the components, as well as to evaluate the leg lengths and offset. The leg lengths and offset were measured as closely as possible to ensure stability of the hip. The hip was then gently dislocated and the trials were then removed. Final implants were then impacted and the hip was again reduced. Final fluoroscopic x-rays confirmed that the components were in anatomic position. The leg lengths and offset were measured and were found to coincide with the trial measurements. The hip was also taken through range of motion, and found to be stable. The hip was then copiously irrigated with antibiotic solution with pulsatile lavage. The hip was then irrigated with Irrisept solution. The soft tissues were then injected with a ropivacaine solution. A second dose of 1 g of Tranexamic acid was also given intravenously. The fascia was then closed with 2-0 strata fix suture. The subcutaneous tissue was closed with 3-0 Vicryl. The subcuticular tissue was closed with 3-0 strata fix suture. The skin was then closed with Exofin skin glue. After the glue and dried, and Optifoam silver impregnated dressing was applied. The patient was then transferred to the recovery room in stable condition. The radiology physician assistant TIN Aponte was required due to the complexity of surgery, and the need for skilled porcelain buildup assistant for positioning, draping, exposure, retraction, and closure of the wound.
--- NOTE | 2024-01-23 10:26 | XR ---
Fluoroscopy History: LEFT HIP FX ORIF, FLUORO TIME 10 SECONDS, DAP: 1.1414, HS/NIA [facility], , 01/23/2024 10:24 AM
--- NOTE | 2024-01-23 11:22 | XR ---
EXAMINATION TYPE: XR Hip Limited LT DATE OF EXAM: 01/23/2024 CLINICAL HISTORY: Postoperative evaluation TECHNIQUE: Single portable view of the left hip was submitted. FINDINGS: Noted are changes of total hip arthroplasty with femoral and acetabular components appearin g well seated. Alignment is anatomic. Postsurgical soft tissue changes are evident. IMPRESSION: Satisfactory postoperative alignment [facility], , 01/23/2024 11:20 AM
[2024-01-23] MEDS: ASPIRIN 81 MG PO SCH (11:53)
[2024-01-23] MEDS: CALCIUM CARB-VIT D 500 MG-5 MCG TAB PO SCH (11:53)
[2024-01-23] MEDS: APIXABAN 5 MG TAB PO SCH (11:53)
[2024-01-23] MEDS: CHOLECALCIFEROL 25 MCG (1000 IU) TABLET PO SCH (11:54)
--- NOTE | 2024-01-23 14:56 | FL ---
Fluoroscopy History: LEFT HIP FX ORIF, FLUORO TIME 10 SECONDS, DAP: 1.1414, HS/NIA [facility], , 01/23/2024 2:53 PM
--- NOTE | 2024-01-23 17:47 | P.PN ---
Subjective Progress Note Date: 01/23/24 Patient is an 83-year-old admitted for left femoral neck fracture. Admitted to orthopedic surgery and we are asked to consult for medical management and preoperative clearance Patient seen and examined at bedside. She is POD 0 surgery. Pain well controlled. No complaints. Vital signs reviewed General: nontoxic, no distress, appears at stated age Derm: warm, dry Eyes: EOMI, no lid lag, anicteric sclera ENT: Nose and ears atraumatic Cardiovascular: good distal perfusion in all 4 extremities Lungs: breathing comfortably Neuro: no focal neurologic deficits Psych: Alert, oriented, appropriate affect Left femoral neck fracture Preoperative clearance; NSQIP score for hemiarthroplasty: Risk of serious complications 4.7% ( average 3.6%), Any complications (5.2% (average 4.3%), cardiac complications 0.3% (avrage 0.3%) Patient medically optimized for surgery. Patient with newly identified RBB and LAF block. No need to delay surgery at this time. Pre and Post op tele monitoring recommended. Obtain echo which can be completed post-op. Obtain EKG from Dr. Gomez. Hypertension, controlled Resume Vasotec 20 mg twice daily Objective - Vital Signs Vital signs: Vital Signs Temp 97.7 F 01/23/24 11:44 Pulse 80 01/23/24 13:14 Resp 16 01/23/24 11:44 BP 120/71 01/23/24 13:14 Pulse Ox 98 01/23/24 13:14 FiO2 Intake & Output 01/22/24 01/23/24 01/23/24 18:59 06:59 18:59 Intake Total 901 Output Total 828 757 5264 Balance -600 -418 -1049 Weight 75.75 kg Intake: IV 901 Output: Urine 504 270 0174 Estimated Blood Loss 100 Other: Voiding Method Indwelling Catheter Indwelling Catheter - Labs CBC & Chem 7: 01/23/24 03:45 01/22/24 09:52 Labs: Abnormal Lab Results - Last 24 Hours (Table) 01/23/24 Range/Units 03:45 Neutrophils # 8.1 H (1.3-7.7) k/uL Lymphocytes # 0.8 L (1.0-4.8) k/uL
[2024-01-23] MEDS: HYDROcodone/APAP 7.5-325MG 1 EACH TAB PO PRN ×2 (17:52→22:59)
[2024-01-23] MEDS: SENNOSIDES-DOCUSATE SODIUM 1 EACH TAB PO SCH (20:33)
[2024-01-24 08:31] LABS: Basophils # (A) 0.02 X 10*3/uL (0.00-0.10); Basophils % (A) 0.2 %; Eosinophils # (A) 0.04 X 10*3/uL (0.04-0.35); Eosinophils % (A) 0.4 %; HCT 35.1 % (37.2-46.3); HGB 11.8 g/dL (12.0-15.0); Lymphocytes # (A) 1.29 X 10*3/uL (0.90-5.00); Lymphocytes % (A) 11.6 %; MCH 32.2 pg (27.0-32.0); MCHC 33.6 g/dL (32.0-37.0); MCV 95.9 FL (80.0-97.0); Mean Platelet Volume 10.5 FL (9.5-12.2); Monocytes # (A) 1.12 X 10*3/uL (0.20-1.00); Monocytes % (A) 10.1 %; NRBC Per 100 WBC 0 X 10*3/uL (0.00-0.01); Neutrophils # (A) 8.59 X 10*3/uL (1.80-7.70); Neutrophils % (A) 77.4 %; Platelet Count 139 X 10*3/uL (140-440); RBC 3.66 X 10*6/uL (4.10-5.20); RDW 12.8 % (11.5-14.5); WBC 11.09 X 10*3/uL (4.50-10.00)
--- NOTE | 2024-01-24 11:26 | P.PN ---
Subjective Progress Note Date: 01/24/24 Patient is an 83-year-old admitted for left femoral neck fracture. Admitted to orthopedic surgery and we are asked to consult for medical management and preoperative clearance. She underwent Left hip hemiarthroplasty with Dr. Jama on 01/22. Patient seen and examined at bedside. She is POD 1 surgery. Pain well controlled. No complaints. Schuler removed, urinating freely. Vital signs reviewed General: nontoxic, no distress, appears at stated age Derm: warm, dry Eyes: EOMI, no lid lag, anicteric sclera ENT: Nose and ears atraumatic Cardiovascular: S1 S2 reg. No murmurs. Lungs: Clear to auscultation bilaterally. Neuro: No focal neurologic deficits Psych: Alert, oriented, appropriate affect Acute blood loss anemia Expected result of surgery. Leukocytosis Mild. Likely reactive. Monitor fever profile. Left femoral neck fracture status post left hip hemiarthroplasty with Dr. Jama on 01/22 Preoperative clearance: NSQIP score for hemiarthroplasty: Risk of serious complications 4.7% (average 3.6%), Any complications 5.2% (average 4.3%), cardiac complications 0.3% (average 0.3%) Patient medically optimized for surgery. Patient with newly identified RBB and LAF block. No need to delay surgery at this time. Pre and Post op tele monitoring recommended. Echo is pending. Hypertension Resume Vasotec 20 mg twice daily Objective - Vital Signs Vital signs: Vital Signs Temp 98 F 01/24/24 06:58 Pulse 79 01/24/24 06:58 Resp 16 01/24/24 06:58 BP 113/69 01/24/24 06:58 Pulse Ox 97 01/24/24 06:58 FiO2 Intake & Output 01/23/24 01/24/24 01/24/24 18:59 06:59 18:59 Intake Total 901 Output Total 1925 Balance -1024 Intake: IV 901 Output: Urine 1825 Estimated Blood Loss 100 Other: Voiding Method Indwelling Catheter Toilet # Voids 1 1 - Labs CBC & Chem 7: 01/24/24 03:40 01/22/24 09:52 Labs: Abnormal Lab Results - Last 24 Hours (Table) 01/24/24 Range/Units 03:40 WBC 11.09 H (4.50-10.00) X 10*3/uL RBC 3.66 L (4.10-5.20) X 10*6/uL Hgb 11.8 L (12.0-15.0) g/dL Hct 35.1 L (37.2-46.3) % MCH 32.2 H (27.0-32.0) pg Plt Count 139 L (140-440) X 10*3/uL Neutrophils # 8.59 H (1.80-7.70) X 10*3/uL Monocytes # 1.12 H (0.20-1.00) X 10*3/uL
--- NOTE | 2024-01-24 11:54 | CA ---
Transthoracic Echo Report Name: Marcy Barfield Age: 83 Gender: F : 1940 Exam Date: 01/24/2024 08:25 Exam Location: [facility] Ht (in): 65 Wt (lb): 167 Ordering Physician: Paty Gaspar DO Attending/Referring Phys: [id number], Hubert Panelboard Operator Amy Brown RDCS Procedure CPT: Indications: new RBBB Cardiac Hx: Technical Quality: Technically difficult study Contrast 1: Definity Total Dose (mL): 2 Contrast 2: Total Dose (mL): MEASUREMENTS (Male / Female) Normal Values 2D ECHO LV Diastolic Diameter PLAX 4.2 cm 4.2 - 5.9 / 3.9 - 5.3 cm LV Systolic Diameter PLAX 2.7 cm IVS Diastolic Thickness 0.7 cm 0.6 - 1.0 / 0.6 - 0.9 cm LVPW Diastolic Thickness 1.0 cm 0.6 - 1.0 / 0.6 - 0.9 cm LV Relative Wall Thickness 0.4 LVOT Diameter 1.9 cm LA Volume 47.4 cm??? 18 - 58 / 22 - 52 cm??? LA Volume Index 25.2 cm???/m??? 16 - 28 cm???/m??? DOPPLER AV Peak Velocity 176.4 cm/s AV Peak Gradient 12.4 mmHg AV Mean Velocity 113.6 cm/s AV Mean Gradient 5.9 mmHg AV Velocity Time Integral 32.4 cm LVOT Peak Velocity 125.9 cm/s LVOT Peak Gradient 6.3 mmHg LVOT Velocity Time Integral 25.6 cm LVOT Stroke Volume 74.6 cm??? LVOT Stroke Volume Index 40.7 ml/m??? LVOT Cardiac Index 3327.6 cm???/min???m??? AV Area Cont Eq vti 2.3 cm??? AV Area Cont Eq pk 2.1 cm??? MV Peak Velocity 145.9 cm/s MV Peak Gradient 8.5 mmHg MV Mean Velocity 95.1 cm/s MV Mean Gradient 3.9 mmHg MV Velocity Time Integral 26.2 cm MV Area PHT 4.8 cm??? Mitral E Point Velocity 83.1 cm/s Mitral A Point Velocity 111.3 cm/s Mitral E to A Ratio 0.7 MV Deceleration Time 159.4 ms TR Peak Velocity 279.3 cm/s TR Peak Gradient 31.2 mmHg Right Atrial Pressure 5.0 mmHg Pulmonary Artery Systolic Pressu 36.2 mmHg Right Ventricular Systolic Press 36.2 mmHg PV Peak Velocity 100.9 cm/s PV Peak Gradient 4.1 mmHg FINDINGS Left Ventricle Left ventricular ejection fraction is estimated at 55-60 %. Left ventricular cavity size normal. Left ventricular wall thickness normal. No obvious regional wall motion abnormalities. Right Ventricle Right ventricular dilatation with normal function. Mild pulmonary hypertension. Right Atrium Right atrium not well visualized. Left Atrium Normal left atrial size. Mitral Valve Structurally normal mitral valve. No mitral stenosis, regurgitation or prolapse.mitral annular calcification. Aortic Valve Trileaflet aortic valve. No aortic valve stenosis or regurgitation.aortic valve not well visualized. Tricuspid Valve Structurally normal tricuspid valve. No tricuspid stenosis. [id number] tricuspid regurgitation. Pulmonic Valve Pulmonic valve not well visualized. No pulmonic stenosis. No pulmonic regurgitation. Pericardium No pericardial effusion. Aorta Aortic annulus normal. CONCLUSIONS Technically difficult study. Definity ECHO contrast used for improved visualization of the endocardial borders (inadequate visualization of two or more contiguous segments). Normal left ventricle size and systolic function Mild to moderate tricuspid regurgitation with mild pulmonary hypertension Limited Doppler study Previewed by: Dr. Arslan Escobedo MD (Electronically Signed) Final Date: 24 January 2024 11:53
--- NOTE | 2024-01-24 13:00 | P.PN ---
Subjective Progress Note Date: 01/24/24 This is an 83-year-old fe male who is status post left hip hemiarthroplasty. This is postoperative day #1 and patient is seen and evaluated at bedside todaytoday. Patient states that she is doing very well and was able to practice stairs with physical therapy today. Patient denies any new complaints today. Objective - Vital Signs Vital signs: Vital Signs Temp 98 F 01/24/24 06:58 Pulse 79 01/24/24 06:58 Resp 16 01/24/24 06:58 BP 113/69 01/24/24 06:58 Pulse Ox 97 01/24/24 06:58 FiO2 Intake & Output 01/23/24 01/24/24 01/24/24 18:59 06:59 18:59 Intake Total 901 Output Total 1925 Balance -1024 Intake: IV 901 Output: Urine 1825 Estimated Blood Loss 100 Other: Voiding Method Indwelling Catheter Toilet # Voids 1 1 - Exam Vital signs are stable. Patient is in no acute distress and is alert and oriented 3. Calf is soft and nontender to palpation. Dressing is clean, dry, and intact. Patient has full foot and ankle motion without pain or difficulty. Sensation intact. Neurovascular status and circulatory status are intact. - Labs CBC & Chem 7: 01/24/24 03:40 01/22/24 09:52 Labs: Abnormal Lab Results - Last 24 Hours (Table) 01/24/24 Range/Units 03:40 WBC 11.09 H (4.50-10.00) X 10*3/uL RBC 3.66 L (4.10-5.20) X 10*6/uL Hgb 11.8 L (12.0-15.0) g/dL Hct 35.1 L (37.2-46.3) % MCH 32.2 H (27.0-32.0) pg Plt Count 139 L (140-440) X 10*3/uL Neutrophils # 8.59 H (1.80-7.70) X 10*3/uL Monocytes # 1.12 H (0.20-1.00) X 10*3/uL Assessment and Plan (1) Fall Current Visit: Yes Status: Acute Code(s): W19.XXXA - SNOMED Code(s): 1 648926 (2) Fracture of femoral neck, left Current Visit: Yes Status: Acute Code(s): S72.002A - FRACTURE OF UNSP PART OF NECK OF LEFT FEMUR, INIT SNOMED Code(s): 9971140 Plan: Continue routine postop care and pain control. Continue anticoagulation with Eliquis. Weightbearing as tolerated with a walker. Leave dressing in place for 7 days. Appreciate input from internal medicine. Anticipate discharge home with homecare tomorrow.
[2024-01-25 07:38] VITALS: BP 117/71; PULSE 98; RESP 17; TEMP 100
[2024-01-25 09:27] LABS: HCT 36.5 % (34.0-46.0); HGB 11.8 gm/dL (11.4-16.0); MCH 31.4 pg (25.0-35.0); MCHC 32.4 g/dL (31.0-37.0); MCV 97.1 fL (80.0-100.0); Mean Platelet Volume 7.3; Platelet Count 151 k/uL (150-450); RBC 3.76 m/uL (3.80-5.40); RDW 12.5 % (11.5-15.5); WBC 9.3 k/uL (3.8-10.6)
--- NOTE | 2024-01-25 09:57 | P.DS ---
Providers Date of admission: 01/22/24 11:18 Expected date of discharge: 01/25/24 Attending physician: Rickie Jama Consults: 01/22/24 11:17 Consult Physician Routine Consulting Provider: Re Verma Consult Reason/Comments: Medical management left femoral neck fracture Do you want consulting provider notified?: Yes Primary care physician: Skip Gomez - Discharge Diagnosis(es) (1) Fall Current Visit: Yes Status: Acute (2) Fracture of femoral neck, left Current Visit: Yes Status: Acute Hospital Course: This is an 83-year-old female who sustained a fracture of her left hip after a fall at home on 01/22/2024. The patient presented for evaluation in the emergency room. After discussion and consideration patient elects to proceed with left hip hemiarthroplasty. The patient is seen preoperatively by Dr. Jama and medically cleared for surgery by internal medicine. Patient is admitted to [facility] on 01/22/2024 and left hip hemiarthroplasty is performed on 01/23/2024. The procedure is performed without complication or sequelae. The patient is doing well postoperatively. Labs and vital signs are stable on day of discharge. On day of discharge patient's hip incision is healing well. There is minimal erythema. There is no drainage noted at this time. There is minimal soft tissue swelling to the hip and thigh. Patient has full foot and ankle motion without difficulty or pain. Calf is soft and nontender to palpation. Neurovascular status to the left lower extremity is intact. Patient is discharged home in good condition. Please see med rec for accurate list of home medications. Patient Condition at Discharge: Stable Plan - Discharge Summary Discharge Rx Participant: No New Discharge Prescriptions: New Apixaban [Eliquis] 2.5 mg PO BID 30 Days #60 tab HYDROcodone/APAP 7.5-325MG [[place] 7.5-325] 1 - 2 tab PO Q6H PRN #32 tab PRN Reason: Pain Sennosides [Senokot] 2 tab PO DAILY PRN #60 tablet PRN Reason: Constipation No Action Enalapril [Vasotec] 20 mg PO BID Cholecalciferol [Vitamin D3 (25 Mcg = 1000 Iu)] 25 mcg PO DAILY Calcium Carbonate/Vitamin D3 [Calcium 500-Vit D3 400 Chew Tb] 1 tab PO DAILY Aspirin EC [Ecotrin Low Dose] 81 mg PO DAILY [place]-3/Dha/Epa/Fish Oil [[place]-3 Fish Oil 1,000 mg Sfgl] 1 cap PO DAILY Discharge Medication List Aspirin EC [Ecotrin Low Dose] 81 mg PO DAILY 01/22/24 [History] Calcium Carbonate/Vitamin D3 [Calcium 500-Vit D3 400 Chew Tb] 1 tab PO DAILY 01/22/24 [History] Cholecalciferol [Vitamin D3 (25 Mcg = 1000 Iu)] 25 mcg PO DAILY 01/22/24 [History] Enalapril [Vasotec] 20 mg PO BID 01/22/24 [History] [place]-3/Dha/Epa/Fish Oil [[place]-3 Fish Oil 1,000 mg Sfgl] 1 cap PO DAILY 01/22/24 [History] Apixaban [Eliquis] 2.5 mg PO BID 30 Days #60 tab 01/23/24 [Rx] HYDROcodone/APAP 7.5-325MG [[place] 7.5-325] 1 - 2 tab PO Q6H PRN #32 tab 01/23/24 [Rx] Sennosides [Senokot] 2 tab PO DAILY PRN #60 tablet 01/23/24 [Rx] Follow up Appointment(s)/Referral(s): Sohail Gomez MD [Primary Care Provider] - 1-2 days [facility] [[facility]] - 1-2 Days ([facility] will call you to schedule your in home nursing, physical therapy, and occupational therapy visits. ) Rickie Jama DO [Doctor of Osteopathic Medicine] - 02/09/24 2:30 pm (with Raissa) Ambulatory/Diagnostic Orders: Walker w/ Wheels [DME.AMB1] Time Frame: 3 Months, Location: None Selected Activity/Diet/Wound Care/Special Instructions: Weightbearing as tolerated with walker. Leave dressing intact. Dressing may be removed by home care nurse or by patient in 7 days. Then change dressing twice daily until follow up. May shower with initial dressing intact and after removal. If dressing become saturated, please remove. Please take Eliquis twice daily for 30 days to prevent blood clots. Recommend use of compression stockings daily until follow up to help prevent swelling and blood clots. May remove at night before sleeping. Please follow-up with [facility] in 2 weeks and call with any questions or concerns, . Discharge Disposition: TRANSFER TO SNF/ECF
== END 2024-01-25 11:34 | DRG 522 ==
LOC: EC 09:30 → 4SSUR 11:18
PROVIDERS: ADMIT Orthopaedic Surgery; ATTEND Orthopaedic Surgery
PROC: 0SRS0JA Replacement of Left Hip Joint, Femoral Surface with Synthetic Substitute, Uncemented, Open Approach (ICD-10-PCS; principal; 2024-01-23 11:00)
PROC: 3E0T3BZ Introduction of Anesthetic Agent into Peripheral Nerves and Plexi, Percutaneous Approach (ICD-10-PCS; principal; 2024-01-23 11:00)
DX: S72.012A Unspecified intracapsular fracture of left femur, initial encounter for closed fracture (principal); D62 Acute posthemorrhagic anemia; I45.2 Bifascicular block; I10 Essential (primary) hypertension; M19.90 Unspecified osteoarthritis, unspecified site; Z96.653 Presence of artificial knee joint, bilateral; Y92.009 Unspecified place in unspecified non-institutional (private) residence as the place of occurrence of the external cause; D72.829 Elevated white blood cell count, unspecified; E78.5 Hyperlipidemia, unspecified; W01.0XXA Fall on same level from slipping, tripping and stumbling without subsequent striking against object, initial encounter; Z79.01 Long term (current) use of anticoagulants; Z79.82 Long term (current) use of aspirin; Z82.49 Family history of ischemic heart disease and other diseases of the circulatory system
CPT/HCPCS: 36415; 71045; 73501; 73502; 80053; 85025; 85027; 85610; 85730; 93005; 93306; 96361; 96374; 99285

== ENCOUNTER → 2024-03-28 | Outpatient (CLI) | payer MEDICARE ==
[2024-03-28 15:51] LABS: HGB 14.2 g/dL (12.0-15.0); MCH 30.7 pg (27.0-32.0); MCHC 32.3 g/dL (32.0-37.0); MCV 95.2 FL (80.0-97.0); Mean Platelet Volume 10.7 FL (9.5-12.2); NRBC Per 100 WBC 0 X 10*3/uL (0.00-0.01); Platelet Count 293 X 10*3/uL (140-440); RBC 4.62 X 10*6/uL (4.10-5.20); WBC 5.47 X 10*3/uL (4.50-10.00)
[2024-03-28 16:44] LABS: Chol/HDL Ratio 2.91 Ratio; LDL Cholesterol,Calculated 83.6 mg/dL (0.0-131.0)
[2024-03-28 16:45] LABS: ALT 28 U/L (8-44); AST 34 U/L (13-35); Albumin 4.1 g/dL (3.8-4.9); Albumin/Globulin Ratio 1.64 Ratio (1.60-3.17); Alkaline Phosphatase 74 U/L (41-126); Blood Urea Nitrogen 13.4 mg/dL (9.0-27.0); Carbon Dioxide 25.6 mmol/L (21.6-31.8); Chloride 101 mmol/L (96-109); Globulin 2.5 g/dL (1.6-3.3); Glucose 141 mg/dL (70-110); Potassium 3.9 mmol/L (3.5-5.5); Sodium 139 mmol/L (135-145); Total Bilirubin 0.4 mg/dL (0.3-1.2); Total Protein 6.6 g/dL (6.2-8.2)
== END | disposition home or self-care (01) ==
LOC: LABWHC1 08:29
PROVIDERS: ATTEND Family Medicine
DX: Z00.01 Encounter for general adult medical examination with abnormal findings (principal); E66.3 Overweight
CPT/HCPCS: 36415; 80053; 80061; 85027